=== PATIENT | female | born 1990 | race African-American/Black ===

== ENCOUNTER 2018-03-08 09:00 | Emergency (ER) | payer MEDICAID ==
[~2018-03-08] VITALS: Ht 175.3 cm; Wt 61.9 kg
[~2018-03-08 09:00] MED LIST: TRAM50TA2
[2018-03-08 09:02] VITALS: BP 135/91
== END 2018-03-08 09:36 | disposition home or self-care (01) ==
LOC: MERGE 09:22 → ED 09:22
DX: K08.89 Other specified disorders of teeth and supporting structures (principal)
CPT/HCPCS: 99283

== ENCOUNTER 2018-03-08 19:56 | Emergency (ER) | payer MEDICAID ==
[~2018-03-08] VITALS: Ht 175.3 cm; Wt 62.3 kg
[2018-03-08 20:00] VITALS: BP 128/78
== END 2018-03-08 20:40 | disposition left against medical advice (07) ==
LOC: ED 20:10 → MERGE 20:10 → ED 20:40
DX: R22.0 Localized swelling, mass and lump, head (principal)
CPT/HCPCS: 99281

== ENCOUNTER 2018-08-20 14:02 | Emergency (ER) | payer MEDICAID, OTHER ==
[~2018-08-20] VITALS: Ht 175.3 cm; Wt 80.1 kg
[2018-08-20 14:03] VITALS: BP 131/78
[2018-08-20] MEDS ORDERED: LIDOCAINE 2%, 20ML SQ ONE (14:30)
[2018-08-20] MEDS ORDERED: LIDOCAINE-MPF 2% ,5ML ONE (14:34)
[2018-08-20] MEDS ORDERED: PRENATAL VITAMIN (15:30)
== END 2018-08-20 15:37 | disposition home or self-care (01) ==
LOC: ED 15:20
DX: O26.893 Other specified pregnancy related conditions, third trimester (principal); K04.7 Periapical abscess without sinus; O16.3 Unspecified maternal hypertension, third trimester; O24.913 Unspecified diabetes mellitus in pregnancy, third trimester; Z3A.28 28 weeks gestation of pregnancy
CPT/HCPCS: 41800; 99283; J3490

== ENCOUNTER 2019-01-06 09:53 | Emergency (ER) | payer MEDICAID ==
[~2019-01-06] VITALS: Ht 175.3 cm; Wt 74.1 kg
[~2019-01-06 09:53] MED LIST changes: +PRENATAL VITAMIN
== END 2019-01-06 11:05 | disposition home or self-care (01) ==
LOC: ED 11:03
DX: K08.89 Other specified disorders of teeth and supporting structures (principal); E11.9 Type 2 diabetes mellitus without complications; I10 Essential (primary) hypertension
CPT/HCPCS: 99283

== ENCOUNTER 2019-11-26 18:48 | Emergency (ER) | payer MEDICAID ==
[~2019-11-26] VITALS: Ht 175.3 cm; Wt 67.4 kg
--- NOTE | 2019-11-26 20:03 | NUR ---
PT TO ROOM FROM LOBBY.
[2019-11-26 20:33] LABS: CULTURE INDICATED? YES; MICROSCOPIC INDICATED
[2019-11-26 20:54] LABS: BASOPHILS # (AUTO) 0.03 x10^3/uL (0-0.1); BASOPHILS % (AUTO) 1 % (0-1); EOSINOPHILS # (AUTO) 0.16 x10^3/uL (0-0.4); EOSINOPHILS % (AUTO) 2 % (1-7); LYMPHOCYTES # (AUTO) 1.85 x10^3/uL (1-3.4); LYMPHOCYTES % (AUTO) 29 % (22-44); MD NO; MEAN CORPUSCULAR HEMOGLOBIN 27.2 pg (27.0-34.8); MEAN CORPUSCULAR HGB CONC 32.2 g/dL (32.4-35.8); MEAN CORPUSCULAR VOLUME 84.4 fL (80-100); MEAN PLATELET VOLUME 7.9 fL (7.4-10.4); MONOCYTES # (AUTO) 0.45 x10^3/uL (0.2-0.8); MONOCYTES % (AUTO) 7 % (2-9); NEUTROPHILS # (AUTO) 3.91 x10^3/uL (1.8-6.8); NEUTROPHILS % (AUTO) 61 % (42-75); PLATELET COUNT 415 x10^3/uL (130-400); RED BLOOD COUNT 4.32 x10^6/uL (3.82-5.3); RED CELL DISTRIBUTION WIDTH 14.3 % (9.6-15.2)
--- NOTE | 2019-11-26 20:58 | NUR ---
PT UPSET AT RN AND [facility] FOR TELLING PT THAT THE ER DOES NOT PROVIDE HIV TESTS AND REFERRED HER TO [facility].
[2019-11-26 21:07] LABS: ANION GAP 8 mmol/L (5-15); CALCIUM 8.3 mg/dL (8.5-10.1); CHLORIDE 108 mmol/L (98-107)
[2019-11-26 21:11] LABS: BILIRUBIN, DIRECT < 0.1 mg/dL (0.1-0.2)
[2019-11-26 21:12] LABS: ALANINE AMINOTRANSFERASE 20 U/L (12-78); ALKALINE PHOSPHATASE 85 U/L (45-117); BILIRUBIN,INDIRECT 0.3 mg/dL (0.0-2.0); BILIRUBIN,TOTAL 0.4 mg/dL (0.2-1.0); CREATININE 0.71 mg/dL (0.55-1.02)
[2019-11-26 21:14] VITALS: BP 108/61
[2019-11-26] MEDS ORDERED: CEFDINIR 300 MG CAPSULE PO ONE (21:30)
[2019-11-26] MEDS ORDERED: CEFDINIR 300 MG CAPSULE ONE (21:47)
== END 2019-11-26 22:07 | disposition home or self-care (01) ==
LOC: ED 21:45
DX: N30.01 Acute cystitis with hematuria (principal); I10 Essential (primary) hypertension; E11.9 Type 2 diabetes mellitus without complications
CPT/HCPCS: 36415; 80048; 80076; 81001; 83690; 84703; 85025; 87077; 87086; 87186; 99283

== ENCOUNTER 2019-12-07 16:00 | Emergency (ER) | payer MEDICAID ==
[~2019-12-07] VITALS: Ht 175.3 cm; Wt 65.7 kg
[2019-12-07 16:03] VITALS: BP 133/71
== END 2019-12-07 16:46 ==
LOC: ED 16:45
DX: J06.9 Acute upper respiratory infection, unspecified (principal); K01.1 Impacted teeth; K08.89 Other specified disorders of teeth and supporting structures; I10 Essential (primary) hypertension; R50.81 Fever presenting with conditions classified elsewhere; E11.9 Type 2 diabetes mellitus without complications; Z72.9 Problem related to lifestyle, unspecified
CPT/HCPCS: 99283

== ENCOUNTER 2020-01-17 17:53 | Emergency (ER) | payer MEDICAID ==
[~2020-01-17] VITALS: Ht 175.3 cm; Wt 69.0 kg
[2020-01-17 17:57] VITALS: BP 153/71
--- NOTE | 2020-01-17 18:12 | NUR ---
[employer]: L&D NOTIFIED OF PT. TO BE NOTIFIED WHEN PT ROOMED AND WILL COME DOWN FOR BABY CHECK
--- NOTE | 2020-01-17 19:40 | NUR ---
PT HAS CO TOOTHACHE AND SHE MIGHT BE . PT STATES WHEN I GET I GET A TOOTHACHE
[2020-01-17] MEDS ORDERED: ONDANSETRON ODT 4 MG ONE (19:41)
[2020-01-17] MEDS ORDERED: ONDANSETRON ODT 4 MG PO ONE (20:00)
--- NOTE | 2020-01-17 20:12 | NUR ---
PT BECAME VERBALLY AGRESSIVE WHEN RN TOLD PT WHAT TUBES WERE FOR UA, THAT THEY TEST FOR UTI AND HCG. PT YELLED " I ONLY WANT A TEST!"
[2020-01-17 20:44] LABS: HCG UR SG 1.029 (1.003-1.030)
--- NOTE | 2020-01-17 21:01 | NUR ---
REPORT FROM EYAL DHALIWAL.
== END 2020-01-17 21:19 | disposition home or self-care (01) ==
LOC: ED 21:06
DX: O26.891 Other specified pregnancy related conditions, first trimester (principal); O10.911 Unspecified pre-existing hypertension complicating pregnancy, first trimester; O24.111 Pre-existing type 2 diabetes mellitus, in pregnancy, first trimester; K08.89 Other specified disorders of teeth and supporting structures; E11.9 Type 2 diabetes mellitus without complications; Z3A.00 Weeks of gestation of pregnancy not specified
CPT/HCPCS: 81025; 99283

== ENCOUNTER 2020-02-13 13:41 | Emergency (ER) | payer MEDICAID ==
[~2020-02-13] VITALS: Ht 175.3 cm; Wt 71.7 kg
[2020-02-13 13:57] VITALS: BP 119/74
--- NOTE | 2020-02-13 14:12 | NUR ---
"I THINK I MAY POSSIBLY HAVING A MISCARRIAGE. I HAVE BEEN 3 1/2 MONTHS." PT STATES . +SPOTTING AND CRAMPING.
--- NOTE | 2020-02-13 14:35 | NUR ---
LAB AT BEDSIDE.
--- NOTE | 2020-02-13 14:40 | NUR ---
PT TRANSPORTED TO US VIA GURNEY.
[2020-02-13 14:47] LABS: MICROSCOPIC INDICATED
[2020-02-13 14:57] LABS: ALANINE AMINOTRANSFERASE 24 U/L (12-78); ALBUMIN 3.2 g/dL (3.4-5.0); ANION GAP 6 mmol/L (5-15); CALCIUM 9.4 mg/dL (8.5-10.1); CHLORIDE 101 mmol/L (98-107); CREATININE 0.68 mg/dL (0.55-1.02)
[2020-02-13 15:04] LABS: BASOPHILS # (AUTO) 0.02 x10^3/uL (0-0.1); BASOPHILS % (AUTO) 0 % (0-1); EOSINOPHILS # (AUTO) 0.06 x10^3/uL (0-0.4); EOSINOPHILS % (AUTO) 1 % (1-7); LYMPHOCYTES # (AUTO) 1.44 x10^3/uL (1-3.4); LYMPHOCYTES % (AUTO) 31 % (22-44); MD NO; MEAN CORPUSCULAR HEMOGLOBIN 27.4 pg (27.0-34.8); MEAN CORPUSCULAR HGB CONC 32.6 g/dL (32.4-35.8); MEAN PLATELET VOLUME 9.1 fL (7.4-10.4); MONOCYTES # (AUTO) 0.41 x10^3/uL (0.2-0.8); MONOCYTES % (AUTO) 9 % (2-9); NEUTROPHILS # (AUTO) 2.75 x10^3/uL (1.8-6.8); NEUTROPHILS % (AUTO) 59 % (42-75); PLATELET COUNT 257 x10^3/uL (130-400); RED BLOOD COUNT 4.67 x10^6/uL (3.82-5.3); RED CELL DISTRIBUTION WIDTH 15.7 % (9.6-15.2)
[2020-02-13 15:15] LABS: ALKALINE PHOSPHATASE 58 U/L (45-117); BILIRUBIN,TOTAL 0.3 mg/dL (0.2-1.0); TOTAL PROTEIN 7.4 g/dL (6.4-8.2)
[2020-02-13 15:35] LABS: CULTURE INDICATED? NO
--- NOTE | 2020-02-13 15:45 | NUR ---
BENJAMIN RN: DISCHARGED PATIENT FOR PRIMARY RN
== END 2020-02-13 15:46 | disposition home or self-care (01) ==
LOC: ED 14:19
DX: O20.0 Threatened abortion (principal); I10 Essential (primary) hypertension; E11.9 Type 2 diabetes mellitus without complications; Z3A.15 15 weeks gestation of pregnancy
CPT/HCPCS: 36415; 76801; 80053; 81001; 84702; 85025; 86901; 99284

== ENCOUNTER 2020-04-09 09:35 | Emergency (ER) | payer MEDICAID ==
[~2020-04-09] VITALS: Ht 175.3 cm; Wt 75.7 kg
--- NOTE | 2020-04-09 10:12 | NUR ---
FIRST CONTACT WITH PT. PT C/O R EAR PAIN/PRESSURE/R SIDED NOSE BLEED - STATES SEEMS SIMILAR TO PREVIOUS EAR WAX IMPACTIONS. PT IS 6MONTHS . DENIES VB/VD/ANY OTHER SYMPTOMS. PT'S AOX4. RESPS EVEN AND UNLABORED. BP/SPO2 MONITORS IN PLACE. CALL LIGHT WITHIN REACH. PA AT BEDSIDE TO EVALUATE AT THIS TIME.
[2020-04-09] MEDS ORDERED: CARBAMIDE PEROXIDE EAR DROPS 6.5%, 15ML ONE (10:19)
--- NOTE | 2020-04-09 10:28 | NUR ---
EAR DROPS APPLIED AT THIS TIME. PT TOLERATED WELL.
[2020-04-09] MEDS ORDERED: CARBAMIDE PEROXIDE EAR DROPS 6.5%, 15ML EACH EAR ONE (10:30)
--- NOTE | 2020-04-09 11:07 | NUR ---
PA AT BEDSIDE TO RECHECK AT THIS TIME.
[2020-04-09 11:09] VITALS: BP 108/56
--- NOTE | 2020-04-09 11:19 | NUR ---
Patient given discharge instructions and they have confirmed that they understand the instructions. Patient ambulatory with steady gait.
== END 2020-04-09 11:20 | disposition home or self-care (01) ==
LOC: ED 10:34
DX: O26.892 Other specified pregnancy related conditions, second trimester (principal); H61.23 Impacted cerumen, bilateral; R04.0 Epistaxis; E11.9 Type 2 diabetes mellitus without complications; I10 Essential (primary) hypertension; Z3A.24 24 weeks gestation of pregnancy
CPT/HCPCS: 99282

== ENCOUNTER 2020-06-20 07:54 | Emergency (ER) | payer MEDICAID ==
[~2020-06-20] VITALS: Ht 165.1 cm; Wt 80.1 kg
[2020-06-20 07:58] VITALS: BP 119/60
--- NOTE | 2020-06-20 08:21 | NUR ---
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
== END 2020-06-20 09:06 | disposition home or self-care (01) ==
LOC: ED 09:00
DX: K08.89 Other specified disorders of teeth and supporting structures (principal); E11.9 Type 2 diabetes mellitus without complications; I10 Essential (primary) hypertension
CPT/HCPCS: 99283

== ENCOUNTER 2020-07-17 11:19 | Outpatient (CLI) | payer MEDICAID ==
[~2020-07-17] VITALS: Ht 175.3 cm; Wt 80.4 kg
[2020-07-17 12:25] LABS: AMPHETAMINE SCREEN, URINE Negative (Negative); BARBITURATE SCREEN, URINE Negative (Negative); BENZODIAZEPINE SCREEN, URINE Negative (Negative); CANNABINOID SCREEN, URINE Negative (Negative); COCAINE SCREEN, URINE Negative (Negative); METHADONE SCREEN, URINE Negative (Negative); OPIATE SCREEN, URINE Negative (Negative)
== END 2020-07-17 12:12 | disposition home or self-care (01) ==
LOC: LDOP 11:19
PROVIDERS: ATTEND Obstetrics & Gynecology
DX: O26.893 Other specified pregnancy related conditions, third trimester (principal); M54.5 Low back pain; Z3A.37 37 weeks gestation of pregnancy
CPT/HCPCS: 59025; 80307

== ENCOUNTER 2020-11-09 14:32 | Emergency (ER) | payer MEDICAID ==
[~2020-11-09] VITALS: Ht 175.3 cm; Wt 73.5 kg
[2020-11-09 14:46] VITALS: BP 129/79
== END 2020-11-09 14:55 | disposition home or self-care (01) ==
LOC: ED 14:45
DX: K08.89 Other specified disorders of teeth and supporting structures (principal); I10 Essential (primary) hypertension; E11.9 Type 2 diabetes mellitus without complications
CPT/HCPCS: 99283